=== PATIENT | male | born 1980 | race American Indian/Alaskan Native ===

== ENCOUNTER 2016-07-05 08:15 | Emergency (ER) | payer OTHER ==
[2016-07-05 08:28] VITALS: BP 143/99
[2016-07-05] MEDS ORDERED: MARCAINE 0.5% INFILTRATI ONE (08:56)
--- NOTE | 2016-07-05 08:56 | Emergency Department Report ---
- General Chief complaint: Skin/Abscess/Foreign Body Stated complaint: ABCESS ON BUTTOCKS Time Seen by Provider: 07/05/16 08:47 Source: patient Mode of arrival: Ambulatory Limitations: No Limitations - History of Present Illness Initial comments: Patient here complaining of pain to his lt buttock area for 2-3 days. He reports pain 8 out of 10. Denies any fever or chills. Denies any nausea vomiting. He said similar incident in the past. He said he took over-the- counter pain medication but is not helping. MD complaint: abscess/boil Onset/Timin -: days(s) Tetanus Up to Date: yes Location: buttocks Severity: severe Severity scale (0 -10): 8 Quality: other (throbbing pain) Consistency: intermittent Improves with: immobilization Worsens with: palpation, movement Context: none, other (none known) Associated symptoms: denies other symptoms Treatments Prior to Arrival: NSAID - Related Data Previous Rx's Medication Instructions Recorded Last Taken Type HYDROcodone/APAP 10-325 [[place] 1 each PO Q4-6H PRN #20 tablet 01/16/15 Unknown Rx 10-325 mg TAB] Ibuprofen [Motrin] 600 mg PO Q8H PRN #40 tablet 01/16/15 Unknown Rx HYDROcodone/APAP 7.5-325 [[place] 1 each PO Q6HR PRN #15 tablet 06/16/15 Unknown Rx 7.5-325 mg TAB] Sulfamethoxazole/Trimethoprim 1 each PO BID #14 tablet 06/16/15 Unknown Rx [Bactrim DS TAB] Ibuprofen [Motrin] 600 mg PO Q8H PRN #20 tablet 03/11/16 Unknown Rx Acetaminophen/Codeine [Tylenol #3] 1 tab PO Q6H PRN #16 tab 03/12/16 Unknown Rx Cephalexin [Keflex] 500 mg PO Q8HR #30 capsule 03/13/16 Unknown Rx Ibuprofen [Motrin 800 MG tab] 800 mg PO Q8HR PRN #15 tablet 07/05/16 Unknown Rx Sulfamethoxazole/Trimethoprim 1 each PO Q12H #20 tablet 07/05/16 Unknown Rx [Bactrim DS TAB] Allergies Allergy/AdvReac Type Severity Reaction Status Date / Time No Known Allergies Allergy Verified 03/13/16 12:07 Abscess Boil HPI - HPI Chief Complaint: Skin/Abscess/Foreign Body Stated Complaint: ABCESS ON BUTTOCKS Time Seen by Provider: 07/05/16 08:47 Home Medications: Previous Rx's Medication Instructions Recorded Last Taken Type HYDROcodone/APAP 10-325 [[place] 1 each PO Q4-6H PRN #20 tablet 01/16/15 Unknown Rx 10-325 mg TAB] Ibuprofen [Motrin] 600 mg PO Q8H PRN #40 tablet 01/16/15 Unknown Rx HYDROcodone/APAP 7.5-325 [[place] 1 each PO Q6HR PRN #15 tablet 06/16/15 Unknown Rx 7.5-325 mg TAB] Sulfamethoxazole/Trimethoprim 1 each PO BID #14 tablet 06/16/15 Unknown Rx [Bactrim DS TAB] Ibuprofen [Motrin] 600 mg PO Q8H PRN #20 tablet 03/11/16 Unknown Rx Acetaminophen/Codeine [Tylenol #3] 1 tab PO Q6H PRN #16 tab 03/12/16 Unknown Rx Cephalexin [Keflex] 500 mg PO Q8HR #30 capsule 03/13/16 Unknown Rx Ibuprofen [Motrin 800 MG tab] 800 mg PO Q8HR PRN #15 tablet 07/05/16 Unknown Rx Sulfamethoxazole/Trimethoprim 1 each PO Q12H #20 tablet 07/05/16 Unknown Rx [Bactrim DS TAB] Allergies/Adverse Reactions: Allergies Allergy/AdvReac Type Severity Reaction Status Date / Time No Known Allergies Allergy Verified 03/13/16 12:07 ED Review of Systems ROS: Stated complaint: ABCESS ON BUTTOCKS Other details as noted in HPI Comment: All other systems reviewed and negative Constitutional: denies: chills, fever Respiratory: no symptoms reported Cardiovascular: denies: chest pain, palpitations, edema, syncope Gastrointestinal: denies: nausea, vomiting Musculoskeletal: denies: back pain, arthralgia Skin: other (Boil to buttocks) Neurological: denies: headache ED Past Medical Hx - Past Medical History Previous Medical History?: Yes Additional medical history: BOILS - Surgical History Past Surgical History?: No - Family History Family history: hypertension - Social History Smoking Status: Current Every Day Smoker Substance Use Type: Alcohol - Medications Home Medications: Home Medications Medication Instructions Recorded Confirmed Last Taken Type HYDROcodone/APAP 10-325 [[place] 1 each PO Q4-6H PRN #20 tablet 01/16/15 Unknown Rx 10-325 mg TAB] Ibuprofen [Motrin] 600 mg PO Q8H PRN #40 tablet 01/16/15 Unknown Rx HYDROcodone/APAP 7.5-325 [[place] 1 each PO Q6HR PRN #15 tablet 06/16/15 Unknown Rx 7.5-325 mg TAB] Sulfamethoxazole/Trimethoprim 1 each PO BID #14 tablet 06/16/15 Unknown Rx [Bactrim DS TAB] Ibuprofen [Motrin] 600 mg PO Q8H PRN #20 tablet 03/11/16 Unknown Rx Acetaminophen/Codeine [Tylenol #3] 1 tab PO Q6H PRN #16 tab 03/12/16 Unknown Rx Cephalexin [Keflex] 500 mg PO Q8HR #30 capsule 03/13/16 Unknown Rx Ibuprofen [Motrin 800 MG tab] 800 mg PO Q8HR PRN #15 tablet 07/05/16 Unknown Rx Sulfamethoxazole/Trimethoprim 1 each PO Q12H #20 tablet 07/05/16 Unknown Rx [Bactrim DS TAB] ED Physical Exam - General Limitations: No Limitations General appearance: alert, in no apparent distress - Head Head exam: Present: atraumatic, normocephalic, normal inspection - ENT ENT exam: Present: normal exam, normal orophraynx, mucous membranes moist, TM's normal bilaterally, normal external ear exam - Neck Neck exam: Present: normal inspection, full ROM. Absent: tenderness, meningismus, lymphadenopathy - Respiratory Respiratory exam: Present: normal lung sounds bilaterally. Absent: respiratory distress, chest wall tenderness - Cardiovascular Cardiovascular Exam: Present: regular rate, normal rhythm, normal heart sounds - GI/Abdominal GI/Abdominal exam: Present: soft, normal bowel sounds. Absent: distended, tenderness, guarding, rebound, rigid - Extremities Exam Extremities exam: Present: normal inspection, full ROM, normal capillary refill. Absent: pedal edema - Back Exam Back exam: Present: normal inspection, full ROM. Absent: tenderness, CVA tenderness (R), CVA tenderness (L), muscle spasm, paraspinal tenderness, vertebral tenderness, rash noted - Neurological Exam Neurological exam: Present: alert, oriented X3, normal gait - Psychiatric Psychiatric exam: Present: normal affect, normal mood - Skin Skin exam: Present: warm, dry, other (abscess) - Expanded Skin Exam Expanded Type of lesion: Present: abscess Distribution of rash: other (abscess lt proximal buttocks. Lateral/inner) Description of rash: Present: size (2 x 2 centimeter), tenderness, swelling, fluctuant, indurated. Absent: erythematous, discharge ED Course Vital Signs 07/05/16 07/05/16 08:26 09:34 Temperature 98.8 F Pulse Rate 77 Respiratory 20 18 Rate Blood Pressure 143/99 O2 Sat by Pulse 100 Oximetry - Reevaluation(s) Reevaluation #1: 07/05/16 09:02 Patient is currently stable. Reevaluation #2: 07/05/16 09:16 Patient given [place] 5/325 2 tablets prior to procedure. - I & D Left Proximal Buttocks Type of Procedure: Complex Site: left proximal buttocks Blade Size: 11 I & D Procedure: betadine prep, sterile drapes applied, sterile dressing applied , gauze wick placed Progress: Prior to incision and drainage [place] 20 cc injected in abscess. ED Medical Decision Making - Medical Decision Making ED course: Procedure note for details on abscess draining. Patient tolerated procedure well. I discussed with patient diagnosis and treatment plan and is in agreement. He reports understanding of discharge instructions. Patient given [place] 5/325 mg 2 tabs in emergency room to manage pain. Patient discharged home with prescription for Motrin and Bactrim DS and to return to emergency room in 3 days for abscess evaluation and removal of packing. She voices understanding of discharge instruction discharged home in stable condition. Critical care attestation.: If time is entered above; I have spent that time in minutes in the direct care of this critically ill patient, excluding procedure time. ED Disposition Clinical Impression: Abscess of buttock, left, Encounter for incision and drainage procedure Disposition: DISCHARGED TO HOME OR SELFCARE Is pt being admited?: No Does the pt Need Aspirin: No Condition: Stable Instructions: Abscess Incision and Drainage (ED) Additional Instructions: Please return to emergency room in 3 days to have packing removed and to reevaluate abscess. Please take antibiotic as prescribed place warm compresses to site to facilitate softening and drainage Prescriptions: Ibuprofen [Motrin 800 MG tab] 800 mg PO Q8HR PRN #15 tablet PRN Reason: Pain Sulfamethoxazole/Trimethoprim [Bactrim DS TAB] 1 each PO Q12H #20 tablet Referrals: PRIMARY CARE, [Primary Care Provider] - 3-5 Days Forms: Work/School Release Form(ED)
[2016-07-05] MEDS ORDERED: NORCO 5/325 ONE (09:03)
[2016-07-05] MEDS ORDERED: NORCO 5/325 PO ONE (09:32)
== END 2016-07-05 09:35 | disposition home or self-care (01) ==
LOC: ED 08:15
DX: L02.31 Cutaneous abscess of buttock (principal); F17.200 Nicotine dependence, unspecified, uncomplicated
CPT/HCPCS: 99282

== ENCOUNTER 2016-10-31 20:55 | Emergency (ER) | payer OTHER ==
[2016-10-31] MEDS ORDERED: NORCO 5/325 PO ONE (23:17)
--- NOTE | 2016-11-01 01:11 | Emergency Department Report ---
HPI - General Chief Complaint: Skin/Abscess/Foreign Body Time Seen by Provider: 10/31/16 23:16 - HPI HPI: Patient is a 36-year-old male with a history of left buttock abscesses 6 months ago presents to ED complaining of pain and swelling in his left cheek region 2 days. Patient states 3 days ago he noticed some pain on his left buttock cheek region. 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 Patient has gotten progressively worse since then. Patient states he been putting some heat pack on his left buttock cheek patient states no drainage. Patient states swelling is hard and hurts when he presses on it. He denies fevers/chills/nausea/vomiting/diarrhea constipation or pain with bowel movement ED Past Medical Hx - Past Medical History Previous Medical History?: Yes Additional medical history: BOILS - Social History Smoking Status: Former Smoker - Medications Home Medications: Home Medications Medication Instructions Recorded Confirmed Last Taken Type HYDROcodone/APAP 10-325 [[place] 1 each PO Q4-6H PRN #20 tablet 01/16/15 Unknown Rx 10-325 mg TAB] Ibuprofen [Motrin] 600 mg PO Q8H PRN #40 tablet 01/16/15 Unknown Rx HYDROcodone/APAP 7.5-325 [[place] 1 each PO Q6HR PRN #15 tablet 06/16/15 Unknown Rx 7.5-325 mg TAB] Sulfamethoxazole/Trimethoprim 1 each PO BID #14 tablet 06/16/15 Unknown Rx [Bactrim DS TAB] Ibuprofen [Motrin] 600 mg PO Q8H PRN #20 tablet 03/11/16 Unknown Rx Sulfamethoxazole/Trimethoprim 1 each PO Q12H #20 tablet 07/05/16 Unknown Rx [Bactrim DS TAB] Acetaminophen/Codeine [Tylenol 1 tab PO Q6H PRN #16 tab 11/01/16 Unknown Rx /Codeine # 3 tab] Cephalexin [Keflex] 500 mg PO Q8HR #30 capsule 11/01/16 Unknown Rx Ibuprofen [Motrin 800 MG tab] 800 mg PO Q8HR PRN #15 tablet 11/01/16 Unknown Rx ED Review of Systems ROS: Stated complaint: SORE ON LT BUTTOCK Other details as noted in HPI Constitutional: denies: chills, fever Eyes: denies: eye pain, eye discharge, vision change ENT: denies: ear pain, throat pain Respiratory: denies: cough, shortness of breath, wheezing Cardiovascular: denies: chest pain, palpitations Endocrine: no symptoms reported Gastrointestinal: denies: abdominal pain, nausea, diarrhea Genitourinary: denies: urgency, dysuria Musculoskeletal: denies: back pain, joint swelling, arthralgia Skin: denies: rash, lesions Neurological: denies: headache, weakness, paresthesias Psychiatric: denies: anxiety, depression Hematological/Lymphatic: denies: easy bleeding, easy bruising Physical Exam - Physical Exam Vital Signs: Vital Signs 10/31/16 21:08 Temperature 99.0 F Pulse Rate 73 Respiratory 18 Rate Blood Pressure 144/96 O2 Sat by Pulse 100 Oximetry Physical Exam: GENERAL: Alert and oriented x3, no apparent distress, Normal Gait, atraumatic. HEAD: Head is normocephalic and a-traumatic. EYES: Extra ocular muscles are intact. Pupils are equal, round, and reactive to light and accommodation. LUNGS: Symetrical with respiration, No wheezing, no rales or crackles, CTAB. HEART: S1, S2 present, regular rate and rhythm without murmur, no rubs, no gallops. Non tender to palpation ABDOMEN: No organomegaly was noted,Positive bowel sounds, soft, and non- distended. . Nontender to palpation on all Quadrants, NO CVA tenderness. RECTUM: No hemorrhoid visualized, no bleeding, no active drainage. Left upper buttock region consists of nonfunctioning 2-3 cm tender to palpation , margin of the scar lesion SKIN: Warm and dry, No lesions, No ulceration or induration present. ED Course Vital Signs 10/31/16 21:08 Temperature 99.0 F Pulse Rate 73 Respiratory 18 Rate Blood Pressure 144/96 O2 Sat by Pulse 100 Oximetry ED Medical Decision Making - Medical Decision Making 36-year-old male present with left buttock abscess ED course: Patient received normal 2 tablets. Plan after examination abscess is not ready to drain it is not fluctuant Discussed this with the patient. Discussed the patient and continue warm compresses and take the antibiotics as prescribed. Discussed the patient to return in 3-5 days is pain gets worse or abscess increases in size discuss discussed with patient to follow up with ED for secondary assessment to see if the abscess is ready for drainage patient's return to ED for incision and drainage. Vital signs are normal patient is in no acute distress. She understands all instructions given Critical care attestation.: If time is entered above; I have spent that time in minutes in the direct care of this critically ill patient, excluding procedure time. ED Disposition Clinical Impression: Boil, buttock, Left buttock pain Disposition: - TO HOME OR SELFCARE Is pt being admited?: No Does the pt Need Aspirin: No Condition: Stable Instructions: Cellulitis (ED), Abscess (ED) Prescriptions: Acetaminophen/Codeine [Tylenol /Codeine # 3 tab] 1 tab PO Q6H PRN #16 tab PRN Reason: Pain Cephalexin [Keflex] 500 mg PO Q8HR #30 capsule Ibuprofen [Motrin 800 MG tab] 800 mg PO Q8HR PRN #15 tablet PRN Reason: Pain Referrals: PRIMARY CARE,MD [Primary Care Provider] - 3-5 Days [facility] [Outside] - 3-5 Days [facility] [Outside] - 3-5 Days Forms: Accompanied Note, Work/School Release Form(ED) Time of Disposition: 01:13
[2016-11-01 01:33] VITALS: BP 132/74
== END 2016-11-01 01:35 | disposition home or self-care (01) ==
LOC: ED 20:55
DX: R22.9 Localized swelling, mass and lump, unspecified (principal); Z87.891 Personal history of nicotine dependence
CPT/HCPCS: 99282

== ENCOUNTER 2016-11-01 20:41 | Emergency (ER) | payer OTHER ==
[2016-11-02] MEDS ORDERED: NORCO 10/325 PO ONE (01:13)
[2016-11-02] MEDS ORDERED: VALIUM IM ONE (01:13)
[2016-11-02] MEDS ORDERED: XYLOCAINE 2% INFILTRATI ONE ×2 (01:56→02:00)
--- NOTE | 2016-11-02 02:02 | Emergency Department Report ---
HPI - General Chief Complaint: Skin/Abscess/Foreign Body Time Seen by Provider: 11/02/16 00:54 - HPI HPI: Patient is a 36-year-old male who was seen here yesterday for left buttock abscess who presents to ED stating pain has gotten worse. He denies worsening pain and cannot even sit down at all due to pain on the buttock. He denies fevers/chills/nausea/vomiting or any other problems. ED Past Medical Hx - Past Medical History Previous Medical History?: No Additional medical history: BOILS - Surgical History Past Surgical History?: No - Social History Smoking Status: Former Smoker Substance Use Type: None - Medications Home Medications: Home Medications Medication Instructions Recorded Confirmed Last Taken Type HYDROcodone/APAP 10-325 [[place] 1 each PO Q4-6H PRN #20 tablet 01/16/15 Unknown Rx 10-325 mg TAB] Ibuprofen [Motrin] 600 mg PO Q8H PRN #40 tablet 01/16/15 Unknown Rx HYDROcodone/APAP 7.5-325 [[place] 1 each PO Q6HR PRN #15 tablet 06/16/15 Unknown Rx 7.5-325 mg TAB] Sulfamethoxazole/Trimethoprim 1 each PO BID #14 tablet 06/16/15 Unknown Rx [Bactrim DS TAB] Ibuprofen [Motrin] 600 mg PO Q8H PRN #20 tablet 03/11/16 Unknown Rx Sulfamethoxazole/Trimethoprim 1 each PO Q12H #20 tablet 07/05/16 Unknown Rx [Bactrim DS TAB] Acetaminophen/Codeine [Tylenol 1 tab PO Q6H PRN #16 tab 11/01/16 Unknown Rx /Codeine # 3 tab] Cephalexin [Keflex] 500 mg PO Q8HR #30 capsule 11/01/16 Unknown Rx Ibuprofen [Motrin 800 MG tab] 800 mg PO Q8HR PRN #15 tablet 11/01/16 Unknown Rx ED Review of Systems ROS: Stated complaint: BOIL Other details as noted in HPI Constitutional: denies: chills, fever Eyes: denies: eye pain, eye discharge, vision change ENT: denies: ear pain, throat pain Respiratory: denies: cough, shortness of breath, wheezing Cardiovascular: denies: chest pain, palpitations Endocrine: no symptoms reported Gastrointestinal: denies: abdominal pain, nausea, diarrhea Genitourinary: denies: urgency, dysuria Musculoskeletal: denies: back pain, joint swelling, arthralgia Skin: denies: rash, lesions Neurological: denies: headache, weakness, paresthesias Psychiatric: denies: anxiety, depression Hematological/Lymphatic: denies: easy bleeding, easy bruising Physical Exam - Physical Exam Vital Signs: Vital Signs 11/01/16 21:18 Temperature 98.2 F Pulse Rate 71 Respiratory 18 Rate Blood Pressure 154/106 O2 Sat by Pulse 99 Oximetry Physical Exam: GENERAL: Alert and oriented x3, no apparent distress, Normal Gait, atraumatic. LUNGS: Symetrical with respiration, No wheezing, no rales or crackles, CTAB. HEART: S1, S2 present, regular rate and rhythm without murmur, no rubs, no gallops. Non tender to palpation ABDOMEN: No organomegaly was noted,Positive bowel sounds, soft, and non- distended. . Nontender to palpation on all Quadrants, NO CVA tenderness. RECTUM: No hemorrhoid visualized, no bleeding, no active drainage. Left upper buttock region consists of nonfunctioning 3-5 cm tender to palpation , margin of the scar lesion. Very tender to palpation. Patient jumps every time he gets touched SKIN: Warm and dry, No lesions, No ulceration or induration present. ED Course Vital Signs 11/01/16 21:18 Temperature 98.2 F Pulse Rate 71 Respiratory 18 Rate Blood Pressure 154/106 O2 Sat by Pulse 99 Oximetry - I & D Left Upper Buttocks Type of Procedure: Complex Site: left buttock Blade Size: 11 I & D Procedure: betadine prep, sterile drapes applied, gauze wick placed ED Medical Decision Making - Medical Decision Making 36-year-old male presents with left buttock abscess Patient received 10 mg of Valium and [place] Patient positioned appropriately, 15cc lidocaine with/without epinephrine was used as a local anesthetic. #11 blade scalpal used for single incision. Additional local anesthetic injected into surrounding viable tissue prior to blunt dissection of loculated adhesions. About 10 mL of [place] drainage of pus Wound packed with iodoform gauze. Procedure tolerated without complications. Wound dressed with sterile 4x4 guaze and paper tape. Pt tolerated procedure well. His constipation and keep taking antibiotics and pain medication as prescribed yesterday Discussed the patient to return in 3 days for wound check and packing removal. Vital signs are normal patient is in no acute distress Discussed with patient about warm compresses discuss keeping wound dry Critical care attestation.: If time is entered above; I have spent that time in minutes in the direct care of this critically ill patient, excluding procedure time. ED Disposition Clinical Impression: Left buttock abscess Disposition: DC- TO HOME OR SELFCARE Is pt being admited?: No Does the pt Need Aspirin: No Condition: Stable Instructions: Abscess Incision and Drainage (ED), Abscess (ED) Additional Instructions: Return to ED 3 days for packing check Return for wound check Continue to take medication as prescribed. Referrals: PRIMARY CAREMD [Primary Care Provider] - 3-5 Days TATO SUAREZ MD [Referring] - 3-5 Days ANGELICA HENNING MD [Staff Physician] - 3-5 Days Forms: Accompanied Note, Work/School Release Form(ED) Time of Disposition: 03:10
[2016-11-02 03:17] VITALS: BP 141/91
== END 2016-11-02 03:20 | disposition home or self-care (01) ==
LOC: ED 20:41
DX: L02.31 Cutaneous abscess of buttock (principal); Z87.891 Personal history of nicotine dependence
CPT/HCPCS: 10061; 96372; 99282; J3360